=== PATIENT | female | born 2005 | race Caucasian/White ===

== ENCOUNTER 2024-04-14 01:31 | Emergency (ER) | payer BC ==
[~2024-04-14] VITALS: Ht 182.9 cm; Wt 118.2 kg
[~2024-04-14 01:31] MED LIST: PREDNISONE20 MG PO
[2024-04-14 01:36] VITALS: TEMP 98
[2024-04-14] MEDS ORDERED: fentaNYL 50 MCG/ML 2 ML VIAL IV ONE (02:00)
[2024-04-14] MEDS ORDERED: NS 1,000 ML IV ONE (02:00)
[2024-04-14 02:04] LABS: BASO # 0.1 K/mm3 (0.0-0.2); BASO % 0.5 % (0.0-2.0); EOS # 0.8 K/mm3 (0.0-0.7); EOS % 7.3 % (0.0-4.0); GRAN # 5.3 K/mm3 (1.4-6.5); GRAN % 48.8 % (42.2-75.2); HEMATOCRIT 43.9 % (35.0-45.0); HEMOGLOBIN 14.7 g/dl (12.0-15.0); LYMPH # 4.1 K/mm3 (1.2-3.4); LYMPH % 37.5 % (20.0-51.0); MEAN CELL VOLUME 88 fl (80.0-95.0); MEAN CORPUSCULAR HEMOGLOBIN 29 pg (26-32); MEAN CORPUSCULAR HGB CONC 34 g/dl (33.0-37.0); MEAN PLATELET VOLUME 9.5 fl (7.4-10.4); MONO # 0.6 K/mm3 (0.1-0.6); MONO % 5.5 % (1.7-9.3); PLATELET COUNT 258 K/mm3 (130-400); RED BLOOD COUNT 5.02 M/mm3 (4.10-5.30); REDCELL DISTRIBUTION WIDTH-CV 12.3 % (11.5-14.5)
[2024-04-14 02:23] LABS: ALANINE AMINOTRANSFERASE 23 U/L (0-55); ALBUMIN 3.9 g/dL (3.5-5.0); ALKALINE PHOSPHATASE 97 U/L (40-150); ANION GAP 11 mmol/L (7-16); AST,SGOT 22 U/L (5-34); BILIRUBIN,TOTAL 0.3 mg/dL (0.2-1.2); BLOOD UREA NITROGEN 11 mg/dL (8-21); C-REACTIVE PROTEIN 0.43 mg/dL (0.00-0.50); CALCIUM 8.9 mg/dL (8.4-10.2); CHLORIDE 111 mEq/L (98-107); CREATININE, serum 0.74 mg/dL (0.57-1.11); GLUCOSE 112 mg/dL (70-99); LIPASE 171 U/L (8-78); POTASSIUM 3.8 mEq/L (3.5-4.5); SODIUM 141 mEq/L (136-145); TOTAL PROTEIN 8.1 g/dl (6.2-8.1)
[2024-04-14 02:29] LABS: TROPONIN-I < 0.010 ng/mL (0.00-0.033)
[2024-04-14 04:18] VITALS: BP 111/80; PULSE 91
== END 2024-04-14 04:18 | disposition home or self-care (01) ==
LOC: COL.ER 01:31
PROVIDERS: Emergency Medicine
DX: M25.511 Pain in right shoulder (principal); I49.3 Ventricular premature depolarization; R74.01 Elevation of levels of liver transaminase levels; J45.909 Unspecified asthma, uncomplicated; Z79.899 Other long term (current) drug therapy
CPT/HCPCS: J3010; J7030

== ENCOUNTER → 2024-05-10 | Outpatient (CLI) | payer BC | LOC: COL.RAD 07:20 | DX: R10.11 Right upper quadrant pain (principal); R11.2 Nausea with vomiting, unspecified; R74.8 Abnormal levels of other serum enzymes ==

== ENCOUNTER → 2024-05-23 | Outpatient (CLI) | payer BC ==
[~2024-05-23] MED LIST changes: +Iohexol 300 - 100 ML VIAL IV ONE; +NS 100 ML IV SCH
== END ==
LOC: COL.RAD 07:22
DX: R74.8 Abnormal levels of other serum enzymes (principal)
CPT/HCPCS: Q9967

== ENCOUNTER → 2024-07-16 | Outpatient (CLI) | payer BC ==
[~2024-07-16] MED LIST changes: -Iohexol 300 - 100 ML VIAL IV ONE; -NS 100 ML IV SCH; +NS IV ONE; +SINCALIDE IV ONE
== END ==
LOC: COL.RAD 06:46
DX: R10.11 Right upper quadrant pain (principal); R74.8 Abnormal levels of other serum enzymes
CPT/HCPCS: A9537-JZ; J2805

== ENCOUNTER 2024-09-03 08:11 | Day surgery (SDC) | payer BC ==
[~2024-09-03] VITALS: Ht 185.4 cm; Wt 119.2 kg
[~2024-09-03 08:11] MED LIST changes: +LR 1,000 ML IV SCH; -NS IV ONE; +Ondansetron 4 MG/2 ML VIAL IV PRN; -SINCALIDE IV ONE
[2024-09-03] MEDS ORDERED: KAPVAY0.1 MG PO (09:06)
[2024-09-03] MEDS ORDERED: VYVANSE50 MG PO (09:06)
[2024-09-03] MEDS ORDERED: NIKKI1 TAB PO (09:06)
[2024-09-03 09:26] VITALS: BP 118/85; PULSE 96; TEMP 98.1
[2024-09-03] MEDS ORDERED: Lidocaine PF 2% (20 MG/ML) 5 ML VIAL ONE (09:30)
[2024-09-03 09:55] VITALS: BP 128/83; PULSE 70; TEMP 97.4
[2024-09-03 10:10] VITALS: BP 134/82; PULSE 81
--- NOTE | 2024-09-03 10:49 | NUR ---
0955: PT TO BAY 2 FROM ENDO SUITE. AMBULATED FROM CART TO RECLINER X2 ASSIST. REPORT RECEIVED FROM ENDO NURSE. PT ALERT AND ORIENTED. DENIES PAIN OR NAUSEA. REQUESTING SPRITE AND APPLESAUCE RESTING IN RECLINER. CALL LIGHT IN REACH. FAMILY AT BEDSIDE. 1010: PT ALERT AND ORIENTED. VSS. TOLERATING APPLESAUCE AND SPRITE. DENIES PAIN AND NAUSEA. DR. ANDERSON IN TO SPEAK WITH PT. RESTING IN RECLINER. CALL LIGHT IN REACH. FAMILY AT BEDSIDE. 1017: DISCHARGE EDUCATION DONE AT THIS TIME. PT STATED UNDERSTANDING OF DC INSTRUCTIONS. DC PAPERWORK GIVEN TO PT. IV DC'D AT THIS TIME. PT DENIES ASSISTANCE WITH DRESSING. 1027: PT AMBULATED INDEPENDENTLY FROM RECLINER TO WHEELCHAIR. PT OFF UNIT AT THIS TIME. PT DC TO HOME WITH FAMILY PER PERSONAL VEHICLE.
== END 2024-09-03 10:27 | disposition home or self-care (01) ==
LOC: SDCO 08:11
PROVIDERS: Internal Medicine Gastroenterology
DX: K29.30 Chronic superficial gastritis without bleeding (principal); B96.81 Helicobacter pylori [H. pylori] as the cause of diseases classified elsewhere; K21.9 Gastro-esophageal reflux disease without esophagitis
CPT/HCPCS: J2704; J7120